=== PATIENT | female | born 1955 | race Caucasian/White ===

== ENCOUNTER 2017-07-12 13:16 | Emergency (ER) | payer MEDICAID, OTHER ==
[~2017-07-12 13:16] MED LIST: LEVEMIR SQ; METF-324 PO; VALA500T PO
[2017-07-12 13:33] VITALS: BP 102/59; PULSE 83; RESP 18; TEMP 99; O2SAT 99
[2017-07-12] MEDS ORDERED: RESP: ALBUTEROL 2.5 MG/3 ML NEB (SCH) INH ONE (14:45)
[2017-07-12] MEDS ORDERED: predniSONE 20 MG TAB PO ONE (14:45)
[2017-07-12] MEDS ORDERED: DOXY100C PO (14:47)
[2017-07-12] MEDS ORDERED: BENZ100 PO (14:47)
[2017-07-12] MEDS ORDERED: PRED-503 PO (14:47)
[2017-07-12] MEDS ORDERED: VENTAER INH (14:47)
--- NOTE | 2017-07-12 14:48 | PD ---
HPI Chief Complaint: Cold / Flu Symptoms Time Seen by Provider: 14:22 Travel History International Travel<30 days: No Contact w/Intl Traveler<30days: No Traveled to known affect area: No History of Present Illness HPI 62-year-old female presents to the emergency department with complaint of body aches, cough, chest congestion, nasal congestion, subjective fevers 1 week. Is concerned she may have the flu. Denies sore throat, ear pain. Denies chest pain. Reports feeling short of breath and wheezing. Reports tobacco use. Denies abdominal pain, diarrhea, vomiting. Has been using [id number] cold /flu medications for symptom management. No known aggravating or relieving factors. Symptoms are mild in severity. Primary care providers in [place]. Allergies to penicillin. History of insulin-dependent diabetes mellitus type 2 and needs a refill on her Humulin 70/30 insulin. Has no other medical complaints. No other modifying factors or associated signs and symptoms. PFSH Past Medical History Anxiety: Yes Depression: Yes Diabetes: Yes (IDDM) Diminished Hearing: No Integumentary: Yes (PRECANCEROUS SITES) Immunizations Current: Yes ?: Not Menopausal: Yes : 1 Para: 1 Past Surgical History Hysterectomy: Yes Social History Alcohol Use: Yes Tobacco Use: Yes Substance Use: Yes (ADMITS TO DRINKING TONIGHT) Allergies-Medications (Allergen,Severity, Reaction): Coded Allergies: penicillin G (Unverified Allergy, Intermediate, Rash, 11/28/16) STATES EPISODE AT AGE 2 YEARS Reported Meds & Prescriptions Reported Meds & Active Scripts Active Tessalon Perles (Benzonatate) 100 Mg Cap 100 Mg PO TID PRN 3 Days Ventolin Hfa 18 GM Inh (Albuterol Sulfate) 90 Mcg/Act Aer 2 Puff INH Q4-6H PRN Doxycycline Hyclate 100 Mg Cap 100 Mg PO BID 10 Days Deltasone (Prednisone) 20 Mg Tab 40 Mg PO DAILY 4 Days start 07/13/2017 Reported Valacyclovir Hcl (Valacyclovir HCl) 500 Mg Tab 1,000 Mg PO DAILY Metformin ER 24 HR (Metformin HCl) 1,000 Mg Tab 1,000 Mg PO Levemir Insulin (Insulin Detemir) 100 Units/Ml Inj 45 Units SQ HS Review of Systems Except as stated in HPI: all other systems reviewed are Neg Physical Exam Narrative GENERAL: Well-nourished, well-developed patient, in no acute distress ; afebrile, nontoxic-appearing SKIN: Warm and dry. No rash. HEAD: Atraumatic. Normocephalic. EYES: Pupils equal and round. No scleral icterus. No injection or drainage. ENT: Mucosa pink and moist. No erythema or exudates. No uvular edema. No uvular , palatal, or tonsillar deviation. Airway patent. EARS: Bilateral pinnae and external canals appear within normal limits. Bilateral tympanic membranes without erythema, dullness or perforation. NECK: Trachea midline. No lymphadenopathy. CARDIOVASCULAR: Regular rate and rhythm. No murmur appreciated. RESPIRATORY: No accessory muscle use. Clear to auscultation and decreased lung sounds in bilateral bases. Breath sounds equal bilaterally. No retractions or tachypnea. No audible wheezing. Moist cough. GASTROINTESTINAL: Abdomen soft, non-tender, nondistended. Hepatic and splenic margins not palpable. Bowel sounds are active 4 quadrants. MUSCULOSKELETAL: No obvious deformities. No clubbing. No cyanosis. No edema. NEUROLOGICAL: Awake and alert. Oriented 3. No obvious cranial nerve deficits. Motor grossly within normal limits. Normal speech. Moves all extremities. 5/5 strength to all extremities. PSYCHIATRIC: Appropriate mood and affect; insight and judgment normal. Data Data Last Documented VS Vital Signs Date Time Temp Pulse Resp B/P (MAP) Pulse Ox O2 Delivery O2 Flow Rate FiO2 07/12/17 13:33 99.0 83 18 102/59 (73) 99 Orders Orders Influenzae A/B Antigen (07/12/17 14:23) Prednisone (Deltasone) (07/12/17 14:45) Albuterol Neb (Albuterol Neb) (07/12/17 14:45) Ed Discharge Order (07/12/17 16:25) [facility] Medical Decision Making Medical Screen Exam Complete: Yes Emergency Medical Condition: Yes Medical Record Reviewed: Yes Differential Diagnosis Influenza, bronchitis, upper respiratory infection, pneumonia, viral illness Narrative Course 62-year-old female HPI physical exam consistent with acute bronchitis and upper respiratory infection. Patient is afebrile and nontoxic-appearing. She has been sick for 1 week. Albuterol nebulizer, Deltasone, influenza ordered. Patient also needs a refill on her Humulin 70/30 insulin. Patient will be given a prescription for refill. 1518: Influenza negative. Doxycycline, Deltasone, Tessalon Perles, Ventolin inhaler prescribed for home. Instructed patient to follow up with primary care provider. Patient verbalizes understanding and agreement with treatment plan. Patient is medically cleared and stable for discharge. Discussed reasons to return to the emergency department. Patient agrees with treatment plan. The patients vital signs are stable and the patient is stable for outpatient follow-up and treatment. Patient discharged home, stable and in no acute distress. Diagnosis Primary Impression: Acute bronchitis Qualified Codes: J20.9 - Acute bronchitis, unspecified Additional Impression: Upper respiratory infection Qualified Codes: J06.9 - Acute upper respiratory infection, unspecified Referrals: Primary Care Physician Patient Instructions: Acute Bronchitis (ED), General Instructions, Upper Respiratory Infection (ED) Additional Instructions: Antibiotics as prescribed Use Albuterol inhaler as prescribed Take oral steroids as prescribed and complete full course Use Tessalon Perles as prescribed to decrease coughing spasms Bpax-[id number]-swkzqlt decongestants or antihistamines as directed and as needed for symptom management Your cough can last 4-6 weeks Drink plenty of fluids to prevent dehydration Use hot air humidifier to decrease cough exacerbation Turn off ceiling fans and sleep with head of bed elevated Avoid triggers such as second hand smoke, dust, known allergens Follow-up with your primary care provider Return to the emergency department immediately with worsening of symptoms Med/Other Pt SpecificInfo: Prescription(s) given Scripts Benzonatate (Tessalon Perles) 100 Mg Cap 100 MG PO TID Y for COUGH for 3 Days, CAP 0 Refills Prov: Genet Jacques [employer] 07/12/17 Albuterol 18 GM Inh (Ventolin Hfa 18 GM Inh) 90 Mcg/Act Aer 2 PUFF INH Q4-6H Y for SOB/WHEEZING, #1 INHALER 0 Refills Prov: Genet Jacques [employer] 07/12/17 Doxycycline Hyclate (Doxycycline Hyclate) 100 Mg Cap 100 MG PO BID for Infection for 10 Days, #20 CAP 0 Refills Prov: Genet Jacques [employer] 07/12/17 Prednisone (Deltasone) 20 Mg Tab 40 MG PO DAILY for 4 Days, #8 TAB 0 Refills start 07/13/2017 Prov: Genet Jacques [employer] 07/12/17 Disposition: 01 DISCHARGE HOME Condition: Stable Genet Jacques Jul 12, 2017 14:48
== END 2017-07-12 16:38 | disposition home or self-care (01) ==
LOC: NEPK 13:16
DX: J20.9 Acute bronchitis, unspecified (principal); J06.9 Acute upper respiratory infection, unspecified; E11.9 Type 2 diabetes mellitus without complications; F32.9 Major depressive disorder, single episode, unspecified; F41.9 Anxiety disorder, unspecified; Z72.0 Tobacco use
CPT/HCPCS: 87804; 94664; 99283; J7512; J7613